=== PATIENT | male | born 1960 | race Caucasian/White ===

== ENCOUNTER 2016-11-21 14:33 | Emergency (ER) | payer MEDICARE, MEDICAID ==
[~2016-11-21] VITALS: Ht 182.9 cm; Wt 99.8 kg
[~2016-11-21 14:33] MED LIST: ASPI81CH43 OR; ATEN-60 PO; DIVA500T59 OR; DOCU100C8 OR; ENAL-3 OR; GEMF600T3 OR; LEVO50TA7 PO; LOVA20TA4 OR; RANI300C7 OR; TEMA30CA OR; ZIPR80CA8 PO
[2016-11-21 15:07] LABS: Basophils # (auto) 0 uL; Basophils % (auto) 0.3 % (0.0-2.0); CONDITION Y; Eosinophils # (auto) 0.2 uL; Eosinophils % (auto) 2.7 % (0.0-7.0); Hematocrit 41.7 % (41.0-53.0); Hemoglobin 14.5 g/dL (13.5-17.5); Lymphocytes # (auto) 1.9 uL; Lymphocytes % (auto) 23.2 % (10.0-50.0); Mean Corpuscular Hemoglobin 34.2 pg (28.0-32.0); Mean Corpuscular Hgb Conc. 34.7 g/dL (32.0-36.0); Mean Corpuscular Volume 98.5 fL (80.0-100.0); Mean Platelet Volume 8.2 fL (7.4-10.4); Monocytes # (auto) 0.7 uL; Neutrophils # (auto) 5.3 uL; Neutrophils % (auto) 65.8 % (37.0-80.0); Platelet Count (auto) 244 10^3/uL (140-450); Red Cell Distribution Width 12.4 % (11.6-16.0); White Blood Cell 8.1 10^3/uL (4.4-10.8)
[2016-11-21 15:31] LABS: Albumin 3.4 g/dL (3.4-5.0); BUN/Creatinine Ratio 14.7; Bilirubin, Total 0.3 mg/dL (0.2-1.0); Calcium 9.2 mg/dL (8.5-10.1); Potassium 3.8 mmol/L (3.5-5.1); Total Protein 7.3 g/dL (6.4-8.2)
[2016-11-21 17:20] VITALS: BP 120/87
== END 2016-11-21 18:10 | disposition home or self-care (01) ==
LOC: ER 14:36
DX: S90.821A Blister (nonthermal), right foot, initial encounter (principal); E78.5 Hyperlipidemia, unspecified; I25.10 Atherosclerotic heart disease of native coronary artery without angina pectoris; K21.9 Gastro-esophageal reflux disease without esophagitis; R62.50 Unspecified lack of expected normal physiological development in childhood; X58.XXXA Exposure to other specified factors, initial encounter; Y93.89 Activity, other specified; Y92.89 Other specified places as the place of occurrence of the external cause; Y99.8 Other external cause status
CPT/HCPCS: 36415; 73620; 80053; 85025; 87040

== ENCOUNTER 2018-01-10 15:52 | Emergency (ER) | payer MEDICARE, MEDICAID ==
[~2018-01-10] VITALS: Ht 200.7 cm; Wt 117.0 kg
[~2018-01-10 15:52] MED LIST changes: -GEMF600T3 OR; +GEMF600T7 OR
[2018-01-10 16:16] VITALS: BP 133/70
== END 2018-01-10 18:10 | disposition home or self-care (01) ==
LOC: ER 15:52
DX: S80.01XA Contusion of right knee, initial encounter (principal); K21.9 Gastro-esophageal reflux disease without esophagitis; E78.5 Hyperlipidemia, unspecified; I10 Essential (primary) hypertension; E07.9 Disorder of thyroid, unspecified; Z79.899 Other long term (current) drug therapy; Z90.49 Acquired absence of other specified parts of digestive tract; W22.8XXA Striking against or struck by other objects, initial encounter; Y93.89 Activity, other specified; Y99.8 Other external cause status; Y92.89 Other specified places as the place of occurrence of the external cause
CPT/HCPCS: 73562

== ENCOUNTER 2018-10-26 20:10 | Inpatient (IN) | payer MEDICARE, MEDICAID | END 2018-11-06 17:52 | disposition other institution (70) | LOC: WEST WING 11-04 04:04 → ER 20:10 → OVERFLOW 20:11 → WEST WING 10-27 10:04 | DX: K56.600 Partial intestinal obstruction, unspecified as to cause (principal); N17.0 Acute kidney failure with tubular necrosis; A08.4 Viral intestinal infection, unspecified; F20.9 Schizophrenia, unspecified; R62.50 Unspecified lack of expected normal physiological development in childhood; E86.0 Dehydration; I10 Essential (primary) hypertension; K21.9 Gastro-esophageal reflux disease without esophagitis; E78.5 Hyperlipidemia, unspecified; E03.9 Hypothyroidism, unspecified; K52.9 Noninfective gastroenteritis and colitis, unspecified; E87.6 Hypokalemia; K56.7 Ileus, unspecified ==

== ENCOUNTER 2020-09-28 13:00 | Emergency (ER) | payer MEDICARE, MEDICAID ==
[~2020-09-28] VITALS: Ht 180.3 cm; Wt 108.9 kg
[~2020-09-28 13:00] MED LIST changes: -ATEN-60 PO; +DIVA500T13 OR; -DIVA500T59 OR; +DOCU100C10 OR; -DOCU100C8 OR; -ENAL-3 OR; +GEMF-19 OR; -GEMF600T7 OR; -LEVO50TA7 PO; +OMEP20TA PO; +ZIPR80CA37 PO; -ZIPR80CA8 PO
[2020-09-28 13:09] VITALS: BP 0/0
== END 2020-09-28 18:12 ==
LOC: EDBD 13:00 → EDUNIT# 13:00 → ER 13:00
DX: I46.9 Cardiac arrest, cause unspecified (principal); I10 Essential (primary) hypertension; K21.9 Gastro-esophageal reflux disease without esophagitis; E78.5 Hyperlipidemia, unspecified; Z90.49 Acquired absence of other specified parts of digestive tract; Z79.82 Long term (current) use of aspirin; Z79.899 Other long term (current) drug therapy
CPT/HCPCS: 92950